=== PATIENT | male | born 1945 ===

== ENCOUNTER → 2025-01-12 08:47 | Outpatient (BNVA) | payer MEDICARE, OTHER, SELFPAY | PROVIDERS: Family Provider Family Medicine; Visit Provider Podiatrist Foot & Ankle Surgery | DX: I73.9 Peripheral vascular disease, unspecified (principal); L60.3 Nail dystrophy; Q66.71 Congenital pes cavus, right foot; Q66.72 Congenital pes cavus, left foot; G62.9 Polyneuropathy, unspecified | CPT/HCPCS: 11721; 99214 ==